=== PATIENT | male | born 1945 | race Caucasian/White ===

== ENCOUNTER 2021-12-13 01:07 | Inpatient (IN) | payer OTHER, MEDICARE ==
[~2021-12-13] VITALS: Ht 6.9 cm; Wt 81.8 kg
[~2021-12-13 01:07] MED LIST: LIPITOR 40MG TA40 MG PO; LORTAB 5/500 501 TAB PO; PRINZIDE 12.5 M1 TA1 PO; ZYLOPRIM 100MG100 MG PO; [UNRECOGNIZED DRUG - OTHER] PO
[2021-12-13 01:39] LABS: BASO # 0.1 K/mm3 (0.0-0.2); BASO % 1.4 % (0.0-2.0); EOS # 0.3 K/mm3 (0.0-0.7); EOS % 4.4 % (0.0-4.0); GRAN # 3.2 K/mm3 (1.4-6.5); GRAN % 45.5 % (42.2-75.2); HEMATOCRIT 40.9 % (42.0-52.0); LYMPH # 2.6 K/mm3 (1.2-3.4); LYMPH % 36.9 % (20.0-51.0); MEAN CELL VOLUME 93 fl (80.0-100.0); MEAN CORPUSCULAR HEMOGLOBIN 32 pg (27-31); MEAN CORPUSCULAR HGB CONC 34 g/dl (33.0-37.0); MEAN PLATELET VOLUME 10.2 fl (7.4-10.4); MONO # 0.8 K/mm3 (0.1-0.6); MONO % 11.2 % (1.7-9.3); PLATELET COUNT 302 K/mm3 (130-400); RED BLOOD COUNT 4.39 M/mm3 (4.20-5.60); REDCELL DISTRIBUTION WIDTH-CV 13.2 % (11.5-14.5)
[2021-12-13 01:48] LABS: PROTHROMBIN TIME 11.5 SECONDS (9.7-12.8)
[2021-12-13 01:51] LABS: PARTIAL THROMBOPLASTIN TIME 31.6 SECONDS (26.0-37.0)
[2021-12-13 02:02] LABS: ALBUMIN 3.8 gm/dL (3.4-4.8); BILIRUBIN,TOTAL 0.3 mg/dL (0.2-1.2); CALCIUM 9.4 mg/dL (8.4-10.2); CREATININE, serum 1.2 mg/dL (0.72-1.25); POTASSIUM 4.1 mmol/L (3.5-4.5); TOTAL PROTEIN 6.8 gm/dL (6.2-8.1)
[2021-12-13 02:12] LABS: TROPONIN-I 0.038 ng/mL (0.00-0.033)
[2021-12-13] MEDS ORDERED: NITROSTAT0.4 MG/TAB PO (03:47)
[2021-12-13] MEDS ORDERED: EDOX60TA1 PO (03:47)
[2021-12-13] MEDS ORDERED: PRINIVIL40 MG PO (03:48)
[2021-12-13] MEDS ORDERED: INDERAL40 MG (03:48)
[2021-12-13] MEDS ORDERED: CRESTOR 10MG10 MG PO (03:50)
[2021-12-13] MEDS ORDERED: MOBIC15 MG PO (03:50)
[2021-12-13] MEDS ORDERED: MYSOLINE 5050 MG/TAB PO (03:51)
[2021-12-13 05:56] VITALS: BP 138/77; PULSE 49; TEMP 97.7
--- NOTE | 2021-12-13 05:58 | NUR ---
PT ADMITTED TO ROOM 329 PER BED. PT A&O X4. NO DISTRESS AT THIS TIME. TELEMENTRY IN PLACE. NO CHEST PAIN. CALL LIGHT IN REACH. BED ALARM SET.
--- NOTE | 2021-12-13 06:29 | NUR ---
NOTIFIED DR KOENIG OF CARDIOLOGY CONSULT.
[2021-12-13 07:39] VITALS: BP 123/78; PULSE 47; TEMP 97.6
--- NOTE | 2021-12-13 08:09 | NUR ---
CRITICAL TROPONIN CALLED TO , NO NEW ORDERS
--- NOTE | 2021-12-13 09:51 | NUR ---
Patient resting in bed. No interest in breakfast. He denies nausea. He denies pain this am. Tele on, Vss. 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 Patient has pill box at bedside. Helped him Identify his blood thinner medication using lexicomp. Instructed him not to take until we clear with doctor. patient reports taking for about 30 days due to DVT in left leg. His at bedside, awaiting plan of care. Will monitor
--- NOTE | 2021-12-13 11:59 | NUR ---
ROUNDED, PLAN OF CARE REVIEWED. HEPARIN DRIP TO BE STARTED TMRW 12/14 SINCE PATIENT DID TAKE HIS EDOXABAN TODAY PER HOSPITALIST. i SPOKE WITH EDMAR IN PHARMACY. PATIENT WILL BE MONITORED PER PTT. PLANS FOR CARDIAC CATH ON WEDNESDAY. PATIENT ABLE TO EAT AND DRINK TODAY.
[2021-12-13 12:03] VITALS: BP 140/80; PULSE 46; TEMP 98.4
--- NOTE | 2021-12-13 15:00 | NUR ---
Consulting Technical Director met with patient for intake assessment/discharge planning: Patient is alert and oriented, watching the football game in bed. He states he lives "part-time" in a condo at the [place], gesturing to [facility] outside the window, and the [place] the [place]. He states he is independent in his ADLs and IADLS, and he utilizes no DME, including oxygen. He sees JOEY George at [facility] for primary care and obtains the majority of his medications through mailorder or [facility] on [address] [address] [facility] [address] in [place], with no difficulties. He informs Maria Luisa, his spouse is his DPOA-HC, and he does not have a copy with him for filing into his medical record at this time. He does not wish to complete an updated version at this time. Patient reports no concerns for needs at discharge. *Discharge plan: to home with spouse*
--- NOTE | 2021-12-13 15:08 | NUR ---
Patient resting in bed, denies needs.
[2021-12-13 16:20] VITALS: BP 147/89; PULSE 52; TEMP 97.9
[2021-12-13 19:36] VITALS: BP 113/71; PULSE 53; TEMP 97.9
--- NOTE | 2021-12-13 21:06 | NUR ---
PT RESTING IN BED. WATCHING FOOTBALL ON CELLPHONE. DENIES ANY CHEST PAIN OR SOA. NO NEEDS AT THIS TIME. LT LOWER LEG SL SWOLLEN FROM DVT. CALL LIGHT IN REACH. BED ALARM SET.
[2021-12-13 23:27] VITALS: BP 155/90; PULSE 48; TEMP 97.6
--- NOTE | 2021-12-13 23:28 | NUR ---
PT C/O LEFT CHEST PAIN. LEVEL 5/19. HAVING MILD NAUSEA NO SOB, ARM, BACK OR ARM PAIN. NOTIFIED TISH TELLO. NO ANSWER. WIILL TRY AGAIN IN A FEW MINUTES.
--- NOTE | 2021-12-13 23:37 | NUR ---
NOTIFIED TISH OF PATIENTW COMPLAINTS. SEE NEW ORDER FOR NITRO AND EKG. PT SAT UP IN BED. CHEST PAIN LEVELN 05/22. NOTIFIED RT FOR EKG.
--- NOTE | 2021-12-13 23:46 | NUR ---
NITRO 0.4MG GIVEN SL. EKG COMPLETED.
--- NOTE | 2021-12-14 | NUR ---
PT CHEST PAIN RESOLVED.
--- NOTE | 2021-12-14 01:10 | NUR ---
PT SLEEPING. NO DISTRESS.
--- NOTE | 2021-12-14 02:30 | NUR ---
PT SLEEPING WITH SNORUS RESP. NO DISTRESS.
[2021-12-14 03:15] VITALS: BP 151/88; PULSE 49; TEMP 97.5
--- NOTE | 2021-12-14 03:18 | NUR ---
PT HAVING PAIN ACROS CHEST. RADIATING DOWN LT ARM. PAIN LEVEL 6\10. HAVING SL NAUSEA. SEE VS. NOTIFIED TISH TELLO. SEE NEW ORDERS/.
--- NOTE | 2021-12-14 03:20 | NUR ---
SEE MAR FOR NITRO 0.4MG SL.
--- NOTE | 2021-12-14 03:29 | NUR ---
RT AND LAB NOTIFIED OF NEW ORDERS.
--- NOTE | 2021-12-14 03:30 | NUR ---
CHEST PAIN RESOLVED AT THIS TIME.
[2021-12-14 03:43] LABS: BASO # 0.1 K/mm3 (0.0-0.2); BASO % 1.3 % (0.0-2.0); EOS # 0.4 K/mm3 (0.0-0.7); EOS % 4.3 % (0.0-4.0); GRAN # 4.4 K/mm3 (1.4-6.5); GRAN % 52.6 % (42.2-75.2); HEMATOCRIT 41.6 % (42.0-52.0); HEMOGLOBIN 14.3 g/dl (13.5-18.0); LYMPH # 2.6 K/mm3 (1.2-3.4); LYMPH % 31.4 % (20.0-51.0); MEAN CELL VOLUME 92 fl (80.0-100.0); MEAN CORPUSCULAR HEMOGLOBIN 32 pg (27-31); MEAN CORPUSCULAR HGB CONC 34 g/dl (33.0-37.0); MEAN PLATELET VOLUME 10.1 fl (7.4-10.4); MONO # 0.9 K/mm3 (0.1-0.6); MONO % 10.2 % (1.7-9.3); PLATELET COUNT 302 K/mm3 (130-400); RED BLOOD COUNT 4.54 M/mm3 (4.20-5.60); REDCELL DISTRIBUTION WIDTH-CV 13.2 % (11.5-14.5)
--- NOTE | 2021-12-14 03:46 | NUR ---
PT RESTING. NO CHEAT PAIN.
[2021-12-14 03:56] LABS: CREATININE, serum 0.85 mg/dL (0.72-1.25); POTASSIUM 4.1 mmol/L (3.5-4.5)
--- NOTE | 2021-12-14 05:00 | NUR ---
TROPONIN ELEVATED 0.135. NEW ORDER TO START HEPARIN GTT. LAB OBTAINED PTT. HEPARIN 4000 UNITS IV GIVEN PER ORDER[place] [address] UN[place]. PT EDUCATED ON PROTOCOL. NEXT PTT IS AT 1100. PT DENIES ANY CHEST PAIN AT PRESENT TIME. CALL LIGHT IN REACH.
[2021-12-14 05:58] LABS: INR 1.1 (0.8-3.0); PROTHROMBIN TIME 12.3 SECONDS (9.7-12.8)
--- NOTE | 2021-12-14 06:21 | NUR ---
NOTIFIED DR KOENIG OF THE EVENING EVENTS. PT WILL COME AND SEE PT THIS AM.
[2021-12-14 07:09] LABS: HEMATOCRIT 40.9 % (42.0-52.0); HEMOGLOBIN 14.1 g/dl (13.5-18.0); MEAN CELL VOLUME 91 fl (80.0-100.0); MEAN CORPUSCULAR HEMOGLOBIN 32 pg (27-31); MEAN CORPUSCULAR HGB CONC 35 g/dl (33.0-37.0); MEAN PLATELET VOLUME 10.4 fl (7.4-10.4); PLATELET COUNT 297 K/mm3 (130-400); RED BLOOD COUNT 4.48 M/mm3 (4.20-5.60); REDCELL DISTRIBUTION WIDTH-CV 13.3 % (11.5-14.5)
[2021-12-14 07:29] VITALS: BP 131/82; PULSE 49; TEMP 98.3
--- NOTE | 2021-12-14 08:00 | NUR ---
Patient laying in bed, A&Ox4. VSS. IV CDI, fluids infusing. Denies pain and discomfort. Call light within reach
[2021-12-14 11:47] VITALS: BP 145/89; PULSE 62; TEMP 98.3
--- NOTE | 2021-12-14 15:18 | NUR ---
Patient transferred by EMS to [facility]. Discharge paperwork and persona; belongings with the patient. Denies pain and discomfort. A&Ox4. VSS. IV CDI fluids infusing. No further needs expressed.
--- NOTE | 2021-12-16 10:56 | NUR ---
PT TRANSFERED TO [facility] PRIOR TO CARDIAC REHAB STAFF VISIT -DUE TO WEEKEND/HOLIDAY ADMISSION.
== END 2021-12-14 15:18 | disposition short-term general hospital (02) | DRG 282 ==
LOC: COL.ER 01:07 → SURG 02:35
PROVIDERS: Emergency Medicine; Internal Medicine Adult Congenital Heart Disease; Student in an Organized Health Care Education/Training Program; ADMIT Internal Medicine
DX: I21.4 Non-ST elevation (NSTEMI) myocardial infarction (principal); I10 Essential (primary) hypertension; E78.5 Hyperlipidemia, unspecified; M19.90 Unspecified osteoarthritis, unspecified site; I44.0 Atrioventricular block, first degree; Z86.718 Personal history of other venous thrombosis and embolism; Z79.01 Long term (current) use of anticoagulants; Z72.89 Other problems related to lifestyle; Z90.49 Acquired absence of other specified parts of digestive tract; Z87.891 Personal history of nicotine dependence
CPT/HCPCS: OP; J1644